=== PATIENT | male | born 1990 | race Caucasian/White ===

== ENCOUNTER 2017-06-05 10:46 | Emergency (ER) | payer SELFPAY ==
[2017-06-05 11:18] VITALS: BP 110/62
[2017-06-05] MEDS ORDERED: Fluorescein Sodium TOPICAL* 1 MG TEST ONE (11:26)
[2017-06-05] MEDS ORDERED: Tetracaine 0.5% OPTH.SOL 4 ML* 1 DROP BTL ONE ×2 (11:26→11:31)
[2017-06-05] MEDS ORDERED: Fluorescein Sodium TOPICAL* 1 MG TEST OPHTHALMIC ONE (11:30)
[2017-06-05] MEDS ORDERED: Eye Irrigation Solution 30 ML BOTTLE BOTH EYES ONE (11:30)
--- NOTE | 2017-06-05 12:02 | UC ---
Eye Complaint HPI - HPI Summary HPI Summary: He was cutting wood on a saw and piece of wood flew up and hit him in the left eye. he has had irritation, tearing and redness since. There is some photophobia. No drainage, just tearing. No contact lens use. - History of Current Complaint Chief Complaint: UCEye Stated Complaint: LEFT EYE INJ Time Seen by Provider: 06/05/17 11:29 Hx Obtained From: Patient Onset/Duration: Sudden Onset, Lasting Days Timing: Constant Severity Initially: Moderate Severity Currently: Moderate Location of Injury: Conjunctiva Aggravating Factor(s): Light Alleviating Factor(s): Other - blinking. Associated Signs And Symptoms: Positive: Photophobia, Drainage (Clear). Negative: Drainage (Purulent), Vision Impairment Bilateral, Vision Impairment Right, Vision Impairment Left, Fever, Swelling Related History: Trauma - Allergies/Home Medications Allergies/Adverse Reactions: Allergies Allergy/AdvReac Type Severity Reaction Status Date / Time Penicillins Allergy Severe Hives Verified 06/05/17 11:18 PMH/Surg Hx/FS Hx/Imm Hx Previously Healthy: Yes - Surgical History Surgical History: Yes Surgery Procedure, Year, and Place: Appendectomy. Lt KNEE - CARTILAGE REMOVED - Family History Known Family History: Positive: None - Social History Occupation: Employed Full-time Alcohol Use: Occasionally Substance Use Type: None Smoking Status (MU): Former Smoker Type: Smokeless Tobacco Review of Systems Eyes: Eye Redness All Other Systems Reviewed And Are Negative: Yes Physical Exam Triage Information Reviewed: Yes Appearance: Well-Appearing - Non toxic but he has obvious eye irritation., No Pain Distress, Well-Nourished Vital Signs: Initial Vital Signs Temp 98.9 F 06/05/17 11:13 Pulse 52 06/05/17 11:13 Resp 16 06/05/17 11:13 BP 110/62 06/05/17 11:13 Pulse Ox 100 06/05/17 11:13 Vital Signs Reviewed: Yes Eyes: Positive: Conjunctiva Inflamed, Other: - There is redness without discharge. No hyphema or pupill irregularity. Visual acuity reviewed. Tetracaine and ful jaqueline staining is neg. Eye lid inversion negative. ENT: Positive: Normal ENT inspection Neck: Positive: Supple, Nontender, No Lymphadenopathy. Negative: Nuchal Rigidity Respiratory: Positive: Normal breath sounds, No respiratory distress, No accessory muscle use. Negative: Respiratory distress, Decreased breath sounds, Accessory muscle use, Crackles, Rhonchi, Stridor, Wheezing Cardiovascular: Positive: No Murmur, Pulses Normal, Brisk Capillary Refill Abdomen Description: Positive: No Organomegaly, Soft. Negative: Distended, Guarding Musculoskeletal: Positive: Strength Intact, ROM Intact, No Edema Neurological: Positive: Alert, Muscle Tone Normal. Negative: Fatigued Psychological: Positive: Age Appropriate Behavior Skin: Negative: rashes Eye Complaint Course/Dx - Differential Dx/Diagnosis Differential Diagnosis/HQI/PQRI: Conjunctivitis, Corneal Abrasion, Detached Retina, Foreign Body, Penetrating Injury, Periorbital Cellulitis, Orbital Cellulitis, Retinal Artery Occlusion, Uveitis Provider Diagnoses: Possible traumatic uveitis. Exam is completely benign. No obvious globe rupture. cipro eye drops and f/u with [facility] if needed. Discharge - Discharge Plan Condition: Good Disposition: HOME Prescriptions: Ciprofloxacin 0.3% OPTH.COLETTE* [Cipro 0.3% Opth*] 2 drop LEFT EYE Q4H #1 btl Patient Education Materials: Conjunctivitis (ED) Forms: *Work Release Referrals: No Primary Care Phys,NOPCP [Primary Care Provider] - Tristian Duvall MD [Medical Doctor] - 1 Day
== END 2017-06-05 12:01 | disposition home or self-care (01) ==
LOC: UCCORT 10:46
DX: S05.92XA Unspecified injury of left eye and orbit, initial encounter (principal); W20.8XXA Other cause of strike by thrown, projected or falling object, initial encounter; Y93.89 Activity, other specified; Y92.9 Unspecified place or not applicable; Z72.89 Other problems related to lifestyle; Z87.891 Personal history of nicotine dependence
CPT/HCPCS: 99212; A9270-GY; G0463

== ENCOUNTER 2018-02-18 15:15 | Emergency (ER) | payer OTHER ==
[2018-02-18 16:00] VITALS: BP 110/66
--- NOTE | 2018-02-18 16:55 | ED ---
Abdominal Pain/Male - HPI Summary HPI Summary: hx. of bloody stools second time since July 2017, in addition has been having night sweats, weight loss of more than 10 lbs, loose stools, no family hx. of bowel disease - History of Current Complaint Chief Complaint: UCGI Stated Complaint: BLOOD IN STOOL Time Seen by Provider: 02/18/18 16:01 Hx Obtained From: Patient Onset/Duration: Gradual Onset Timing: Intermittent Severity Initially: Moderate Severity Currently: Moderate Pain Intensity: 3 Location: Diffuse Radiates: No Radiates to: Other - diffuse abdominal pain Character: Dull, Cramping Aggravating Factor(s): Nothing Alleviating Factor(s): Nothing - Risk Factors Testicular Torsion: Negative Cardiac Risk Factors: Negative - Allergies/Home Medications Allergies/Adverse Reactions: Allergies Allergy/AdvReac Type Severity Reaction Status Date / Time Penicillins Allergy Hives Verified 02/18/18 16:01 Home Medications: Home Medications NK [No Home Medications Reported] 02/18/18 [History Confirmed 02/18/18] PMH/Surg Hx/FS Hx/Imm Hx Previously Healthy: Yes Endocrine/Hematology History: Denies: Hx Diabetes Cardiovascular History: Denies: Hx Hypertension, Hx Pacemaker/ICD Respiratory History: Denies: Hx Asthma History: Denies: Hx Renal Disease Sensory History: Denies: Hx Hearing Aid Psychiatric History: Denies: Hx Panic Disorder - Surgical History Surgery Procedure, Year, and Place: Appendectomy. Lt KNEE - CARTILAGE REMOVED Infectious Disease History: No Infectious Disease History: Denies: History Other Infectious Disease, Traveled Outside the [place] in Last 30 Days - Family History Known Family History: Positive: None - Social History Alcohol Use: Occasionally Substance Use Type: Reports: None Smoking Status (MU): Former Smoker Type: Smokeless Tobacco Review of Systems Constitutional: Other - night sweats, weight loss Eyes: Negative ENT: Negative Cardiovascular: Negative Respiratory: Negative Positive: Abdominal Pain, Diarrhea Genitourinary: Negative Musculoskeletal: Negative Skin: Negative Neurological: Negative Psychological: Normal All Other Systems Reviewed And Are Negative: Yes Physical Exam Triage Information Reviewed: Yes Vital Signs On Initial Exam: Initial Vitals Temp Pulse Resp BP Pulse Ox 37.2 C 58 16 110/66 100 02/18/18 15:56 02/18/18 15:56 02/18/18 15:56 02/18/18 15:56 02/18/18 15:56 Vital Signs Reviewed: Yes Appearance: Positive: Well-Appearing, Thin Skin: Positive: Warm, Dry Head/Face: Positive: Normal Head/Face Inspection Eyes: Positive: Normal ENT: Positive: Normal ENT inspection Neck: Positive: Supple Respiratory/Lung Sounds: Positive: Clear to Auscultation Cardiovascular: Positive: Normal Abdomen Description: Positive: Nontender Male Genital Exam: Positive: Other - rectal exam negative for masses or hemorrhoids, no blood on my finger Musculoskeletal: Positive: Normal Neurological: Positive: Normal Diagnostics - Vital Signs Vital Signs Temp Pulse Resp BP Pulse Ox 02/18/18 15:56 37.2 C 58 16 110/66 100 - Laboratory Lab Statement: Any lab studies that have been ordered have been reviewed, and results considered in the medical decision making process. Abdominal Pain Fem Course/Dx - Diagnoses Provider Diagnoses: Hematochezia Is Visit Related: No Discharge - Sign-Out/Discharge Documenting (check all that apply): Patient Departure All imaging exams completed and their final reports reviewed: Yes - Discharge Plan Condition: Good Disposition: HOME Patient Education Materials: Rectal Bleeding (ED) Referrals: No Primary Care Phys,NOPCP [Primary Care Provider] - Additional Instructions: care connect, will need primary care doctor to evaluate you and refer to gastroenterology - Billing Disposition and Condition Condition: GOOD Disposition: Home
[2018-02-19 14:06] LABS: ABS Basophils 0.1 10^3/ul (0-0.2); ABS Eosinophils 0.2 10^3/ul (0-0.6); ABS Lymphocytes 2.4 10^3/ul (1.0-4.8); ABS Monocytes 0.6 10^3/ul (0-0.8); ABS Neutrophils 4.2 10^3/ul (1.5-7.7); ABS Nucleated RBC 0 10^3/ul; Eosinophil % 3.3 % (0-6); Hematocrit 41 % (42-52); Hemoglobin 14.1 g/dl (14.0-18.0); Lymphocyte % 31.6 % (25-47); Mean Corpuscular HGB Conc 34 g/dl (31-36); Mean Corpuscular Hemoglobin 31 pg (27-31); Mean Corpuscular Volume 91 fL (80-94); Mean Platelet Volume 8.7 um3 (7.4-10.4); Nucleated Red Blood Cells % 0.2; Platelet Count 206 10^3/ul (150-450); Red Blood Count 4.51 10^6/ul (4.00-5.40); Red Cell Distribution Width 13 % (10.5-15); White Blood Count 7.5 10^3/ul (3.5-10.8)
[2018-02-19 14:18] LABS: EGFR Non-African American 73.5 (>60)
== END 2018-02-18 17:05 | disposition home or self-care (01) ==
LOC: UCCORT 15:15
DX: K92.1 Melena (principal); Z88.0 Allergy status to penicillin; Z87.891 Personal history of nicotine dependence
CPT/HCPCS: 36415; 80053; 85025; 99211; G0463